=== PATIENT | female | born 1980 | race Two or more races ===

== ENCOUNTER 2019-03-21 19:10 | Emergency (ER) | payer SELFPAY ==
[~2019-03-21] VITALS: Ht 170.2 cm; Wt 78.0 kg
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
[2019-03-21] MEDS ORDERED: IBUPROFEN 600 MG TABLET PO ONE ×2 (19:30→19:31)
--- NOTE | 2019-03-21 19:30 | NUR ---
XRAY AT BEDSIDE.
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
[2019-03-21] MEDS ORDERED: ONDANSETRON 4 MG TAB.RAPDIS ONE (19:48)
--- NOTE | 2019-03-21 19:50 | NUR ---
PT FEELING NAUSIOUS, [employer] AWARE. WILL CARRY OUT ORDERS.
[2019-03-21] MEDS ORDERED: ONDANSETRON 4 MG TAB.RAPDIS SL ONE (20:00)
--- NOTE | 2019-03-21 20:04 | NUR ---
Patient discharged to home in stable condition. Written and verbal after care instructions given. Patient verbalizes understanding of instruction.
[2019-03-21 20:30] VITALS: BP 144/88
== END 2019-03-21 20:30 | disposition home or self-care (01) ==
LOC: ER 19:12
DX: S39.012A Strain of muscle, fascia and tendon of lower back, initial encounter (principal); R06.4 Hyperventilation; V49.49XA Driver injured in collision with other motor vehicles in traffic accident, initial encounter; Y93.89 Activity, other specified; Y92.488 Other paved roadways as the place of occurrence of the external cause; Y99.8 Other external cause status
CPT/HCPCS: 72100; 99283; Q0162